=== PATIENT | female | born 1960 | race Caucasian/White ===

== ENCOUNTER 2016-07-08 05:47 | Day surgery (SDC) | payer OTHER ==
--- NOTE | 2016-06-27 15:49 | CPEKG ---
Heart Rate: 70 RR Interval: 857 P-R Interval: 148 QRSD Interval: 104 QT Interval: 424 QTC Interval: 458 P O'Brien: 22 QRS O'Brien: 14 T Wave O'Brien: 36 EKG Severity - NORMAL ECG - EKG Impression: SINUS RHYTHM Electronically Signed By: Christian Spencer 27-Jun-2016 17:31:14
[2016-06-27 18:05] LABS: ANION GAP 11 mEq/L (8-16); CALCIUM 9.4 mg/dL (8.5-10.4); CARBON DIOXIDE 29 mEq/l (22-31); CHLORIDE 100 mEq/L (97-110); CREATININE 0.8 mg/dL (0.6-1.0); GLOMERULAR FILTRATION RATE > 60; GLUCOSE 86 mg/dL (70-100); POTASSIUM 4.3 mEq/L (3.5-5.2); SODIUM 140 mEq/L (134-144)
[2016-07-08] MEDS ORDERED: LR 1,000 ML IV ONE (06:15)
[2016-07-08] MEDS ORDERED: PROPOFOL/EMULSION 500 MG/50 ML BOTTLE IV ONE (07:14)
[2016-07-08] MEDS ORDERED: MIDAZOLAM 2 MG/2 ML VIAL ONE (07:14)
--- NOTE | 2016-07-08 09:03 | GPN ---
[f rep st] PROCEDURE NOTE PREPROCEDURE DIAGNOSIS: Need for screening colonoscopy. POSTPROCEDURE DIAGNOSIS: Colon polyps, status post removal. PROCEDURE: Colonoscopy with snare and colonoscopy with biopsies. MEDICATIONS: Monitored anesthesia care. INDICATIONS: The patient is a 56-year-old female with history of asthma and elevated BMI, who presents for screening colonoscopy. The risks and benefits of the procedure were discussed with the patient and consent obtained. Risks include, but not limited to, bleeding, perforation, risks related to sedation. The patient is ASA class 3. DESCRIPTION OF PROCEDURE: The adult colonoscope was advanced into the cecum, which showed a 4 mm polyp, which was removed with cold snare polypectomy technique and retrieved for pathology. The appendiceal orifice, ileocecal valve appeared normal. Ascending colon showed a 4 mm polyp, which was removed using cold snare polypectomy technique and retrieved for pathology. The hepatic flexure appeared normal. The transverse colon showed 2 polyps, the 1st measured 7 mm and was removed using hot snare polypectomy and retrieved for pathology. The 2nd transverse colon polyp was 2 mm and removed using cold biopsy forceps and retrieved for pathology. The splenic flexure, and descending colon appeared normal. The sigmoid colon showed a 7 mm polyp which was removed using hot snare polypectomy and retrieved for pathology. Retroflexed views in the rectum were normal. IMPRESSION: Multiple colon polyps, status post removal as described above. RECOMMENDATIONS: 1. Discharge to home with escort. 2. Advance diet as tolerated. 3. Continue present medications. 4. Follow up pathology results which will be available within 10 days. 5. Repeat colonoscopy based on pathology results. If 3 or more polyps are adenomatous, I recommend that she repeat colonoscopy in 3 years. If 1-2 polyps are adenomatous, recommend repeat colonoscopy in 5 years. Thank you for allowing me to participate in the care of your patient. /[id number]/MODL MTDD
== END 2016-07-08 08:50 | disposition home or self-care (01) ==
LOC: FSGY 05:47
PROVIDERS: ATTEND Internal Medicine Gastroenterology
PROC: 0DBE8ZX Excision of Large Intestine, Via Natural or Artificial Opening Endoscopic, Diagnostic (ICD-10-PCS; principal; 2016-07-08 07:15)
DX: D12.0 Benign neoplasm of cecum (principal); D12.2 Benign neoplasm of ascending colon; D12.5 Benign neoplasm of sigmoid colon; K63.5 Polyp of colon; J45.909 Unspecified asthma, uncomplicated; E66.01 Morbid (severe) obesity due to excess calories; Z68.43 Body mass index [BMI] 50.0-59.9, adult
CPT/HCPCS: J2250; J2704

== ENCOUNTER → 2017-01-12 | Outpatient (CLI) | payer OTHER | LOC: FIMAGING 10:59 | PROVIDERS: ATTEND Family Medicine | DX: Z12.31 Encounter for screening mammogram for malignant neoplasm of breast (principal) | CPT/HCPCS: G0202 ==

== ENCOUNTER 2018-11-28 11:57 | Emergency (ER) | payer OTHER | END 2018-11-28 13:18 | disposition home or self-care (01) | LOC: CED 11:57 ==